=== PATIENT | female | born 1955 | race Caucasian/White ===

== ENCOUNTER → 2017-07-01 | Outpatient (CLI) | payer MEDICAID ==
[~2017-07-01] MED LIST: ALAVERT10 M1 PO; FLONASE 50 MCG16 GM; GABAPENTIN100 M1 PO; MECLIZINE 25MG25 MG PO; PHENERGAN25 M3 PO; PRILOSEC20 M1 PO
--- NOTE | 2017-07-01 13:46 | RADIOLOGY REPORT PS360 ---
HEPATOBILIARY SCAN WITH CCK ORDERING PHYSICIAN : Cy Jackson MD PATIENT AGE: 61 years GENDER: Female HISTORY: Right upper quadrant pain and nausea Following 8.86 millicuries Tc Choletec, images of the right upper quadrant were obtained. There is prompt uptake of radionuclide by the liver which is grossly unremarkable. Small bowel is visualized. This initial portion of the study is normal. The gallbladder was allowed to fill out to 60 minutes. This point 1.2 MCG CCK was administered IV via infusion pump over 30 minutes with with simultaneous performed over this same 30 minutes. The obtain data was analyzed and reveals a 22% gallbladder ejection fraction (normal greater than 50%; borderline 35-50%). Patient experienced discomfort with CCK... [place] like stomach was swelling IMPRESSION: Abnormal low gallbladder 22% ejection fraction . c/w chronic cholecystitis &/biliary dyskinesia .
== END ==
LOC: RAD 09:52
DX: R10.11 Right upper quadrant pain (principal)
CPT/HCPCS: A9537; J2805